=== PATIENT | male | born 1985 | race Caucasian/White ===

== ENCOUNTER → 2019-09-01 13:08 | Outpatient (CLI) | payer OTHER, SELFPAY ==
--- NOTE | 2019-09-01 | DI.MRI.S_ITS ---
PROCEDURE: MR WRIST LT WO CON INDICATIONS: Pain in left wrist TECHNIQUE: Noncontrast coronal proton density fast spin echo and T2 fast spin echo with fat saturation; coronal 3-D gradient echo, axial T1 spin echo and T2 fast spin echo with fat saturation, sagittal T1 spin echo through the wrist. COMPARISON: Left wrist radiographs dated 08/27/2019 performed at [facility]. FINDINGS: Image quality: Excellent. Bones and cartilage: The carpal bones are normally aligned. No bone marrow contusions or fractures. No evidence for avascular necrosis. Overlying cartilage surfaces appear normal. There is minimal degenerative spurring at the 1st carpometacarpal joint. Carpal ligaments: The scapholunate and lunotriquetral ligaments appear intact. In the absence of intra-articular contrast, the extrinsic carpal ligaments are not well identified. On sagittal images, the pisohamate ligament appears intact. Triangular fibrocartilage complex: The triangular fibrocartilage appears intact. Tendons and soft tissues: The carpal tunnel structures appear normal, including the median nerve. The ulnar nerve appears normal within Guyon's canal. And there is mild tendinosis of the extensor carpi ulnaris tendon and trace of fluid in the tendon sheath. There is no subluxation of the extensor carpi ulnaris tendon. The remaining extensor tendons are intact. No soft tissue ganglion cysts. IMPRESSION: 1. Mild tendinosis and tenosynovitis of the extensor carpi ulnaris tendon. 2. No acute trabecular bone injury. No significant ligament injury is seen. Dictated by: Jared Lindquist M.D. on 09/03/2019 at 8:30 Approved by: Jared Lindquist M.D. on 09/03/2019 at 10:04
== END ==
PROVIDERS: Referring Provider Physical Medicine & Rehabilitation Pain Medicine; Visit Provider Physical Medicine & Rehabilitation Pain Medicine
DX: M25.532 Pain in left wrist (principal); M65.832 Other synovitis and tenosynovitis, left forearm
CPT/HCPCS: 73221

== ENCOUNTER → 2020-11-10 13:05 | Outpatient (CLI) | payer OTHER, SELFPAY ==
--- NOTE | 2020-11-10 | DI.MRI.S_ITS ---
PROCEDURE: MR CERVICAL SPINE WO CON INDICATIONS: Spinal stenosis, cervical region TECHNIQUE: Noncontrast sagittal T1 spin echo and T2 fast spin echo, sagittal STIR, foraminal oblique sagittal T2 fast spin echo, and axial gradient echo or T2 fast spin echo through the cervical spine. COMPARISON: [facility] [place], CR, XR CERVICAL SPINE WITH OBLIQUES, 10/27/2020, 15:33. FINDINGS: Image quality: Diagnostic, with note made of motion artifact. Alignment and Curvature: There is overall straightening of the normal cervical lordosis. No focal AP alignment abnormality is seen. Bone Marrow: Marrow demonstrates normal overall signal. Spinal Cord: Visualized spinal cord has normal size and signal. No cerebellar tonsillar herniation. Paraspinous Soft Tissues: No paravertebral masses. Prevertebral soft tissues are normal in thickness. C2-C3: Normal appearance. C3-C4: No significant abnormality is seen. C4-C5: The disc height is well-preserved. Loss of disc signal is seen at this level. A mild degree of generalized disc osteophyte complex is seen. Mild bilateral neural foraminal narrowing is seen. Mild central canal narrowing is seen. C5-C6: Mild loss of disc height is seen. Loss of disc signal is seen. At least moderate disc osteophyte complex is seen. Moderate facet joint hypertrophy is seen. There is moderate to severe right-sided and at least moderate left-sided neural foraminal narrowing seen. C6-C7: Mild loss of disc height is seen. Loss of disc signal is seen. Mild to moderate disc osteophyte complex is seen Mild facet joint hypertrophy is seen. There is moderate to severe bilateral neural foraminal narrowing seen, right worse than left. No significant central canal narrowing is seen. C7-T1: No significant abnormality is seen. IMPRESSION: Degenerative changes are seen, which are worst at C5-C6 and C6-C7. Dictated by: Cuong Nazario M.D. on 11/10/2020 at 13:28 Approved by: Cuong Nazario M.D. on 11/10/2020 at 13:48
== END ==
PROVIDERS: Referring Provider Physical Medicine & Rehabilitation Pain Medicine; Visit Provider Physical Medicine & Rehabilitation Pain Medicine
DX: M48.02 Spinal stenosis, cervical region (principal); M47.812 Spondylosis without myelopathy or radiculopathy, cervical region
CPT/HCPCS: 72141